=== PATIENT | female | born 1965 | race Two or more races ===

== ENCOUNTER 2017-03-11 16:53 | Emergency (ER) | payer OTHER ==
[~2017-03-11] VITALS: Ht 157.5 cm; Wt 90.0 kg
[2017-03-11] MEDS ORDERED: IBUPROFEN 600MG TABLET PO ONE (20:30)
[2017-03-11 20:42] VITALS: BP 148/91
== END 2017-03-11 22:30 | disposition home or self-care (01) ==
LOC: ER 22:15
DX: J06.9 Acute upper respiratory infection, unspecified (principal); Z88.1 Allergy status to other antibiotic agents; Z88.6 Allergy status to analgesic agent; Z88.8 Allergy status to other drugs, medicaments and biological substances
CPT/HCPCS: 99283